=== PATIENT | female | born 1995 | race American Indian/Alaskan Native ===

== ENCOUNTER 2021-01-06 17:46 | Emergency (ER) | payer SELFPAY ==
[2021-01-06 18:00] VITALS: BP 116/70
[2021-01-06] MEDS ORDERED: ACETAMINOPHEN 325 MG TAB PO ONE (18:33)
[2021-01-06] MEDS ORDERED: TETANUS,DIPH,PERTUSS(ACELL) VACCINE 0.5 ML SYRINGE IM ONE (18:33)
[2021-01-06] MEDS ORDERED: LIDOCAINE (1%) 10 MG/1 ML VIAL 20 ML MDV INFILTRATI ONE (18:33)
--- NOTE | 2021-01-06 18:34 | Emergency Department Report ---
- General Chief Complaint: Laceration/Recheck/Suture Stated Complaint: CUT ON ARM Time Seen by Provider: 01/06/21 18:00 Source: patient Mode of arrival: Ambulatory Limitations: No Limitations - History of Present Illness Initial Comments: 25-year-old female presents to the ER today with complaints of laceration to her right volar forearm. Patient states that she was walking up some steps in her house, and her kids had toys on the floor and she excellently stepped on one of the toys causing her to lose balance and was about to fall. She states that she tried to catch herself but the remaining along her steps are metal, and there is a piece sticking out in the process of trying to get herself that piece cut her left forearm. She states that she did not fall completely she was eventually able to catch herself. She now has a laceration to the volar left forearm. She reports some mild pain around the laceration. She is unsure of her last tetanus shot. She reports no numbness, tingling or any additional symptoms at this time. -: Sudden, This afternoon (around 3pm ) Location: other (Right volar forearm) Extremity Location: Right: Forearm Place: home Context: accidental Associated Symptoms: pain - Related Data Previous Rx's Medication Instructions Recorded Last Taken Type Ibuprofen [Motrin] 600 mg PO Q8H PRN #30 tablet 01/06/21 Unknown Rx Allergies Allergy/AdvReac Type Severity Reaction Status Date / Time No Known Allergies Allergy Verified 01/06/21 17:53 ED Review of Systems ROS: Stated complaint: CUT ON ARM Other details as noted in HPI ED Past Medical Hx - Past Medical History Previous Medical History?: No - Surgical History Past Surgical History?: No - Medications Home Medications: Home Medications Medication Instructions Recorded Confirmed Last Taken Type Ibuprofen [Motrin] 600 mg PO Q8H PRN #30 tablet 01/06/21 Unknown Rx ED Physical Exam - General Limitations: No Limitations ED Course Vital Signs 01/06/21 01/06/21 17:53 19:20 Temperature 98 F Pulse Rate 84 Respiratory 16 18 Rate Blood Pressure 116/70 [Left] O2 Sat by Pulse 99 Oximetry - Laceration /Wound Repair Left Volar Arm Wound Location: upper extremity (right volar forearm ) Wound Length (cm): 5 Wound's Depth, Shape: superficial Wound Explored: clean Irrigated w/ Saline (ccs): 100 Betadine Prep?: Yes Anesthesia: 1% Lidocaine Volume Anesthetic (ccs): 9 Wound Repaired With: sutures Suture Size/Type: 4:0 Number of Sutures: 11 Layer Closure?: No Sterile Dressing Applied?: Yes Progress: Patient tolerated procedure well without any complications. ED Medical Decision Making - Radiology Data Radiology results: report reviewed Patient: MENG MOHAMUD MR#: [id number] : 1995 Acct:[id number] Age/Sex: 25 / F ADM Date: 01/06/21 Loc: ED Attending Dr: Ordering Physician: ABELARDO MATTHEWS Date of Service: 01/06/21 Procedure(s): XR forearm RT Accession Number(s): [id number] cc: ABELARDO MATTHEWS Fluoro Time In Minutes: RIGHT FOREARM 2 VIEWS INDICATION / CLINICAL INFORMATION: forearm laceration COMPARISON: None available. FINDINGS: BONES and JOINT(S): No acute fracture or subluxation. No significant arthritis. SOFT TISSUES: Anteriorly along the middle third of the forearm is a laceration measuring up to 3.3 cm and overlying the radius. No radiopaque foreign body or other significant abnormality. ADDITIONAL FINDINGS: None. IMPRESSION: Right forearm laceration as above without other acute findings. Signer Name: Jeff Mckay MD Signed: 01/06/2021 7:02 PM Workstation Name: [id number] Transcribed By: BEATRICE Dictated By: Jeff Mckay MD Electronically Authenticated By: Jeff Mckay MD Signed Date/Time: 01/06/211901 DD/ 00 TD/TT: Critical care attestation.: If time is entered above; I have spent that time in minutes in the direct care of this critically ill patient, excluding procedure time. ED Disposition Clinical Impression: Laceration of forearm Disposition: 01 HOME / SELF CARE / HOMELESS Is pt being admited?: No Condition: Stable Instructions: Laceration Care, Adult, [id number], Sutures, [place], or Adhesive Wound Closure, [id number] Additional Instructions: Keep the wound clean daily with soap and water. Do not use alcohol or peroxide to clean the wound. Dry well after each cleaning and apply thin layer of Neosporin. Do this every day until its time to have the sutures removed which will be next 12 to 14 days. Take the ibuprofen as prescribed to help with pain. Return sooner to the ER if there is any signs and symptoms of infection such as pus drainage, increasing pain, swelling or redness, fever or chills. Prescriptions: Ibuprofen [Motrin] 600 mg PO Q8H PRN #30 tablet PRN Reason: Pain Referrals: KITA BAUER MD [Staff Physician] - 3-5 Days Forms: Work/School Release Form(ED) Time of Disposition: 20:38 Print Language: MALTESE
--- NOTE | 2021-01-06 19:07 | XRay Report ---
RIGHT FOREARM 2 VIEWS INDICATION / CLINICAL INFORMATION: forearm laceration COMPARISON: None available. FINDINGS: BONES and JOINT(S): No acute fracture or subluxation. No significant arthritis. SOFT TISSUES: Anteriorly along the middle third of the forearm is a laceration measuring up to 3.3 cm and overlying the radius. No radiopaque foreign body or other significant abnormality. ADDITIONAL FINDINGS: None. IMPRESSION: Right forearm laceration as above without other acute findings. Signer Name: Jeff Mckay MD Signed: 01/06/2021 7:02 PM Workstation Name: [id number]
[2021-01-06] MEDS ORDERED: NEOMY 3.5 MG/BACIT 400 UNITS/POLY B 5000 UNITS/GM OINT PACKET TP ONE (20:27)
== END 2021-01-06 20:53 | disposition home or self-care (01) ==
LOC: ED 17:46
DX: S51.811A Laceration without foreign body of right forearm, initial encounter (principal); W45.8XXA Other foreign body or object entering through skin, initial encounter; Y93.01 Activity, walking, marching and hiking; Y92.008 Other place in unspecified non-institutional (private) residence as the place of occurrence of the external cause; Y99.8 Other external cause status
CPT/HCPCS: 12002; 73090; 90471; 90715; 99283; A6250

== ENCOUNTER 2021-01-27 19:37 | Emergency (ER) | payer MEDICAID ==
[2021-01-27 20:49] VITALS: BP 116/60
--- NOTE | 2021-01-27 21:13 | Emergency Department Report ---
ED General Adult HPI - General Chief complaint: Laceration/Recheck/Suture Stated complaint: REMOVAL OF STICHES/ WOUND LEAKING Time Seen by Provider: 01/27/21 21:07 Source: patient Mode of arrival: Ambulatory Limitations: No Limitations - History of Present Illness Initial comments: Patient presents for follow-up and suture removal from right forearm sutures x11. Sutures placed 16 days ago. There are no symptoms of infection no fevers no chills no nausea no vomiting. There is no other exacerbating or relieving factors. - Related Data Previous Rx's Medication Instructions Recorded Last Taken Type Ibuprofen [Motrin] 600 mg PO Q8H PRN #30 tablet 01/06/21 Unknown Rx Allergies Allergy/AdvReac Type Severity Reaction Status Date / Time No Known Allergies Allergy Verified 01/06/21 17:53 ED Review of Systems ROS: Stated complaint: REMOVAL OF STICHES/ WOUND LEAKING Other details as noted in HPI Constitutional: denies: chills, fever Eyes: denies: eye pain, eye discharge, vision change ENT: denies: ear pain, throat pain Respiratory: denies: cough, shortness of breath, wheezing Cardiovascular: denies: chest pain, palpitations Endocrine: no symptoms reported Gastrointestinal: denies: abdominal pain, nausea, diarrhea Genitourinary: denies: urgency, dysuria, discharge Musculoskeletal: denies: back pain, joint swelling, arthralgia Skin: other (Sutures right forearm as above.) Neurological: denies: headache, weakness, paresthesias Psychiatric: denies: anxiety, depression Hematological/Lymphatic: denies: easy bleeding, easy bruising ED Past Medical Hx - Past Medical History Previous Medical History?: No - Surgical History Past Surgical History?: No - Medications Home Medications: Home Medications Medication Instructions Recorded Confirmed Last Taken Type Ibuprofen [Motrin] 600 mg PO Q8H PRN #30 tablet 01/06/21 Unknown Rx ED Physical Exam - General Limitations: No Limitations General appearance: alert, in no apparent distress - Head Head exam: Present: atraumatic, normocephalic - Eye Eye exam: Present: normal appearance - ENT ENT exam: Present: mucous membranes moist - Neck Neck exam: Present: normal inspection - Respiratory Respiratory exam: Present: normal lung sounds bilaterally. Absent: respiratory distress - Cardiovascular Cardiovascular Exam: Present: regular rate, normal rhythm. Absent: systolic murmur, diastolic murmur, rubs, gallop - GI/Abdominal GI/Abdominal exam: Present: soft, normal bowel sounds - Rectal Rectal exam: Present: deferred - Extremities Exam Extremities exam: Present: normal inspection - Back Exam Back exam: Present: normal inspection - Neurological Exam Neurological exam: Present: alert, oriented X3 - Psychiatric Psychiatric exam: Present: normal affect, normal mood - Skin Skin exam: Present: other (Sutures x11 right anterior forearm edges well approximated no symptoms of infection) ED Course Vital Signs 01/27/21 20:43 Temperature 98.3 F Pulse Rate 65 Respiratory 18 Rate Blood Pressure 116/60 O2 Sat by Pulse 100 Oximetry - Procedure Description Procedures done: Sutures x11 removed intact to right forearm laceration. Edges well approximated. There is no erythema no drainage no symptoms of infection. Patient tolerated procedure with minimal distress. ED Medical Decision Making - Medical Decision Making Visit for suture removal, no symptoms of infection, all sutures removed intact. Patient DC'd home in stable condition. Given aftercare instructions. Patient verbalized understanding of same. Critical care attestation.: If time is entered above; I have spent that time in minutes in the direct care of this critically ill patient, excluding procedure time. ED Disposition Clinical Impression: Visit for suture removal Disposition: 01 HOME / SELF CARE / HOMELESS Is pt being admited?: No Does the pt Need Aspirin: No Condition: Stable Instructions: Wound Closure Removal, Care After Additional Instructions: Wash with soap and water, follow-up with your doctor as needed. Referrals: [facility] [Provider Group] - 3-5 Days Forms: Work/School Release Form(ED) Time of Disposition: 21:16
== END 2021-01-27 21:55 | disposition home or self-care (01) ==
LOC: ED 19:37
DX: S51.811D Laceration without foreign body of right forearm, subsequent encounter (principal); X58.XXXD Exposure to other specified factors, subsequent encounter
CPT/HCPCS: 99281